=== PATIENT | female | born 2000 | race Caucasian/White ===

== ENCOUNTER 2025-07-10 19:56 | Emergency (ER) | payer OTHER ==
[~2025-07-10] VITALS: Ht 165.1 cm; Wt 63.5 kg
[2025-07-10 20:04] VITALS: BP 136/78
[2025-07-10] MEDS ORDERED: NAPROSYN500 MG PO (20:12)
[2025-07-10] MEDS ORDERED: PENICILLIN VK500 MG PO (20:12)
[2025-07-10] MEDS ORDERED: PENICILLIN V POTASSIUM 500 MG TAB PO ONE (20:15)
== END 2025-07-10 20:15 | disposition home or self-care (01) ==
LOC: ED 19:56
DX: K04.7 Periapical abscess without sinus (principal); K02.9 Dental caries, unspecified